=== PATIENT | female | born 1960 | race Caucasian/White ===

== ENCOUNTER 2022-09-15 15:41 | Emergency (ER) | payer OTHER ==
[2022-09-15] MEDS ORDERED: CYMBALTA20 MG (15:58)
[2022-09-15] MEDS ORDERED: ONDANSETRON HYDR4 MG (15:59)
[2022-09-15] MEDS ORDERED: FISH OIL1 IU (15:59)
[2022-09-15] MEDS ORDERED: NEURONTIN300 MG/CAP (15:59)
[2022-09-15] MEDS ORDERED: EVISTA 60MG60 MG/TAB (15:59)
[2022-09-15] MEDS ORDERED: VALIUM 5MG T5 MG/TAB (15:59)
[2022-09-15] MEDS ORDERED: NEXIUM20 MG (15:59)
[2022-09-15] MEDS ORDERED: PAMELOR25 M1 (16:00)
[2022-09-15] MEDS ORDERED: INDERAL 10MG10 MG PO (16:00)
[2022-09-15 16:41] LABS: BASO # 0.01 K/mm3 (0.02-0.10); EOS # 0.09 K/mm3 (0.04-0.40); EOS % 1.9 % (1.0-5.0); HEMATOCRIT 36.9 % (37.0-47.0); HEMOGLOBIN 12.1 g/dL (12.5-16.0); LYMPH# 1.07 K/mm3 (1.50-4.00); MEAN CELL VOLUME 93 fl (78-100); MEAN CORPUSCULAR HEMOGLOBIN 31 pg (27-31); MEAN CORPUSCULAR HGB CONC 33 g/dL (33-37); MEAN PLATELET VOLUME 9.2 fl (7.4-10.4); MONO # 0.31 K/mm3 (0.20-0.80); NEU # 3.21 K/mm3 (1.40-6.50); PLATELET COUNT 231 K/mm3 (130-400); RED BLOOD COUNT 3.97 M/mm3 (4.10-5.30); RED CELL DISTRIBUTION WIDTH 12.3 % (11.5-14.5); WHITE BLOOD COUNT 4.7 K/mm3 (4.8-10.8)
[2022-09-15 17:10] LABS: ALBUMIN 4.1 g/dL (3.4-4.8); SODIUM 141 mmol/L (136-145)
[2022-09-15 17:11] LABS: CALCIUM 9.4 mg/dL (8.3-10.5)
[2022-09-15 17:12] LABS: GLUCOSE 102 mg/dL (65-105); TOTAL PROTEIN 7.3 g/dL (6.2-8.1)
[2022-09-15 17:13] LABS: CARBON DIOXIDE 28 mmol/L (23-31)
[2022-09-15 17:14] LABS: TOTAL BILIRUBIN 0.4 mg/dL (0.2-1.2)
[2022-09-15 17:18] LABS: AST-SGOT 19 U/L (5-34)
[2022-09-15 17:19] LABS: ALT/SGPT 15 U/L (0-55)
[2022-09-15 17:20] LABS: URINE APPEARANCE HAZY; URINE BILIRUBIN NEGATIVE (NEGATIVE); URINE BLOOD TRACE (NEGATIVE); URINE COLOR YELLOW; URINE GLUCOSE NEGATIVE (NEGATIVE); URINE KETONE NEGATIVE (NEGATIVE); URINE LEUKOCYTE ESTERASE NEGATIVE (NEGATIVE); URINE NITRATE NEGATIVE (NEGATIVE); URINE PROTEIN(semi-quant) TRACE (NEGATIVE); URINE UROBILINOGEN NORMAL (NORMAL); URINE WBC 0-1 /hpf (0-3)
[2022-09-15 17:21] LABS: URINE MUCUS PRESENT (NOT PRESENT)
[2022-09-15 17:34] LABS: TROPONIN-I < 0.030 ng/mL (<0.030)
[2022-09-15 18:04] VITALS: BP 180/97
== END 2022-09-15 17:58 | disposition home or self-care (01) ==
LOC: ED 15:41
PROVIDERS: Physician Assistant
DX: S06.0X0A Concussion without loss of consciousness, initial encounter (principal); Z87.891 Personal history of nicotine dependence; Z79.01 Long term (current) use of anticoagulants; W18.30XA Fall on same level, unspecified, initial encounter